=== PATIENT | male | born 1970 | race Caucasian/White ===

== ENCOUNTER 2022-08-04 15:39 | Outpatient (CLI) | payer BC ==
[~2022-08-04] VITALS: Ht 177.8 cm; Wt 81.8 kg
[2022-08-05] MEDS ORDERED: ALBU90AE2 IH (10:21)
[2022-08-05] MEDS ORDERED: ESCI20TA PO (10:21)
== END 2022-08-05 10:44 | disposition home or self-care (01) ==
LOC: PREOP 15:39
PROVIDERS: ATTEND Otolaryngology Otolaryngology/Facial Plastic Surgery
DX: Z01.818 Encounter for other preprocedural examination (principal)

== ENCOUNTER 2022-08-12 05:52 | Day surgery (SDC) | payer BC ==
[~2022-08-12] VITALS: Ht 177.8 cm; Wt 81.8 kg
[2022-08-12] VITALS (13 sets, daily range): BP systolic 100–132; BP diastolic 59–85
[~2022-08-12 05:52] MED LIST: ALBU90AE2 IH; ESCI20TA PO
[2022-08-12] MEDS ORDERED: LACTATED RINGERS 1,000 ML IV PRN (06:15)
[2022-08-12 06:30] LABS: BASOPHILS # (AUTO) 0.1 10^3/uL (0.0-0.1); BASOPHILS % (AUTO) 1 % (0-10); EOSINOPHILS # (AUTO) 0.3 10^3/uL (0.0-0.3); EOSINOPHILS % (AUTO) 4 % (0-10); HEMATOCRIT 52 % (40-54); HEMOGLOBIN 17.3 g/dL (13.3-17.7); LYMPHOCYTES # (AUTO) 3.4 10^3/uL (1.0-4.0); LYMPHOCYTES % (AUTO) 34 % (12-44); MEAN CORPUSCULAR HEMOGLOBIN 30 pg (25-34); MEAN CORPUSCULAR HGB CONC 33 g/dL (32-36); MEAN CORPUSCULAR VOLUME 90 fL (80-99); MEAN PLATELET VOLUME 10.9 fL (9.0-12.2); MONOCYTES # (AUTO) 0.9 10^3/uL (0.0-1.0); MONOCYTES % (AUTO) 9 % (0-12); NEUTROPHILS # (AUTO) 5.1 10^3/uL (1.8-7.8); NEUTROPHILS % (AUTO) 52 % (42-75); PLATELET COUNT 209 10^3/uL (130-400); WHITE BLOOD COUNT 9.8 10^3/uL (4.3-11.0)
[2022-08-12 06:43] LABS: POTASSIUM 4.1 MMOL/L (3.6-5.0)
[2022-08-12 06:44] LABS: CALCIUM 9.4 MG/DL (8.5-10.1)
[2022-08-12 06:49] LABS: CREATININE SERUM 0.91 MG/DL (0.60-1.30)
[2022-08-12] MEDS ORDERED: MUPIROCIN 2% OINT 22 GM (BACTROBAN) TUBE ONE (06:54)
[2022-08-12] MEDS ORDERED: LIDOCAINE/EPI 1%-1:100,000 (XYLOCAINE) 20ML ONE (06:54)
[2022-08-12] MEDS ORDERED: BSS 15 ML ONE (06:54)
--- NOTE | 2022-08-12 06:54 | Progress Note-Pre Operative ---
Pre-Operative Progress Note Date of Available H&P: Aug 12, 2022 Date H&P Reviewed: Aug 12, 2022 Time H&P Reviewed: 06:30 History & Physical: H&P Reviewed, Patient Examed, No changes noted Changes from last HP none Pre-Operative Diagnosis: Right Parotid Mass SUHAIL URIBE MD Aug 12, 2022 06:54
--- NOTE | 2022-08-12 06:55 | Progress Note-Post Operative ---
Post-Operative Progess Note Surgeon (s)/Brake Repair Mechanic (s) Surgeon SUHAIL URIBE MD Brake Repair Mechanic n/a Pre-Operative Diagnosis Right Parotid Mass Post-Operative Diagnosis same Post-Op Procedure Note Date of Procedure: Aug 12, 2022 Name of Procedure Performed: Right Partodiectomy Description & Findings Description and Findings: n/a Anesthesia Type get Estimated Blood Loss minimal Packing 1 grenade drain Specimen(s) collected/removed Right Parotid to pathology SUHAIL URIBE MD Aug 12, 2022 06:55
[2022-08-12] MEDS ORDERED: D5 1/2 NS W/KCL 20 MEQ/L 1,000 ML IV SCH (07:00)
[2022-08-12] MEDS ORDERED: LIDOCAINE PF 2% 5 ML (XYLOCAINE) VIAL ONE (07:11)
[2022-08-12] MEDS ORDERED: fentaNYL INJ 100 MCG/2 ML AMP ONE (07:11)
[2022-08-12] MEDS ORDERED: ONDANSETRON 4 MG/2 ML (SDV) Z0FRAN ONE (07:11)
[2022-08-12] MEDS ORDERED: SUCCINYLCHOLINE INJ 20 MG/1 ML 10 ML VIAL ONE (07:11)
[2022-08-12] MEDS ORDERED: SEVOFLURANE (ULTANE) 15 ML INHAL SOLN ONE ×2 (07:11→09:12)
[2022-08-12] MEDS ORDERED: proPOfol 200 MG/20 ML (DIPRIVAN) VIAL IV ONE (07:11)
[2022-08-12] MEDS ORDERED: MIDAZOLAM 2 MG/2 ML (VERSED) VIAL ONE (07:12)
[2022-08-12] MEDS ORDERED: LIDOCAINE/EPI 1%-1:100,000 (XYLOCAINE) 20ML INJ ONE (08:30)
[2022-08-12] MEDS ORDERED: BSS 15 ML IO ONE (08:32)
[2022-08-12] MEDS ORDERED: MUPIROCIN 2% OINT 22 GM (BACTROBAN) TUBE TOP ONE (08:32)
--- NOTE | 2022-08-12 09:26 | Anesthesia-General Post-Op ---
General Patient Condition Mental Status/LOC: Same as Preop Cardiovascular: Satisfactory Nausea/Vomiting: Absent Respiratory: Satisfactory Pain: Controlled Complications: Absent Post Op Complications Complications None Follow Up Care/Instructions Patient Instructions None needed. Anesthesia/Patient Condition Patient Condition Patient is doing well, no complaints, stable vital signs, no apparent adverse anesthesia problems. No complications reported per nursing. CLEM LEON CRNA Aug 12, 2022 09:26
[2022-08-12] MEDS ORDERED: MEPERIDINE (DEMEROL) INJ 50 MG/ML IVP ONE (09:30)
[2022-08-12] MEDS ORDERED: morphine INJ 10 MG/ML 1ML (SYR OR VIAL) IVP ONE (09:30)
[2022-08-12] MEDS ORDERED: HYDROmorphone 2 MG/ML VIAL (DILAUDID) IV ONE (09:30)
[2022-08-12] MEDS ORDERED: ONDANSETRON 4 MG/2 ML (SDV) Z0FRAN IVP PRN (09:30)
[2022-08-12] MEDS: HYDROcodone/APAP 5 MG/325 MG (LORTAB) TAB PO PRN ×2 (16:28→21:49)
--- NOTE | 2022-08-12 17:18 | Progress Note ---
Standard Progress Note Progress Notes/Assess & Plan Date Seen by a Provider: Aug 12, 2022 Time Seen by a Provider: 17:00 Progress/Assessment & Plan ENT-Sheron Doing Well Minimal Drainage f rom Drain Face-movements normal bilat will oberve-plan on drain out and home tomorrow after breakfaast pain meds as needed dieet as tolerated Final Diagnosis warthins tumor right parotid SUHAIL URIBE MD Aug 12, 2022 17:18
[2022-08-13] MEDS: HYDROcodone/APAP 5 MG/325 MG (LORTAB) TAB PO PRN ×2 (03:07→06:43)
[2022-08-13 03:09] VITALS: BP 125/62
--- NOTE | 2022-08-13 06:20 | Progress Note ---
Standard Progress Note Progress Notes/Assess & Plan Date Seen by a Provider: Aug 13, 2022 Time Seen by a Provider: 06:00 Progress/Assessment & Plan Ubaldo Doing Well Minimal Drainage f rom Drain Face-movements normal bilat will oberve-plan on drain out and home tomorrow after breakfaast pain meds as needed dieet as tolerated Ubaldo 6/24-6am doing well minimal drainage drain dc'ed ruy diet well will discharge after [id number] days label and send tony bactroban use bid along incision line discharge prescription in chart SUHAIL URIBE MD Aug 13, 2022 06:20
[2022-08-13 07:32] VITALS: BP 130/83
[2022-08-13] MEDS ORDERED: bactroban (08:45)
[2022-08-13] MEDS ORDERED: ACHD5005 PO (08:47)
== END 2022-08-13 09:08 | disposition home or self-care (01) ==
LOC: SDC 05:52 → 4TH 10:20 → SDC 08-13 09:08
PROVIDERS: ATTEND Otolaryngology Otolaryngology/Facial Plastic Surgery
DX: D11.0 Benign neoplasm of parotid gland (principal); F17.210 Nicotine dependence, cigarettes, uncomplicated
CPT/HCPCS: 36415; 80048; 85025; 87081; 88307; 88331; 93005